=== PATIENT | female | born 1985 | race Caucasian/White ===

== ENCOUNTER 2024-02-28 05:46 | Inpatient (IN) | payer MEDICAID ==
[~2024-02-28] VITALS: Ht 177.8 cm; Wt 68.2 kg
[2024-02-28 09:37] LABS: BASOPHILS % (AUTO) 0.3 % (0-1); EOSINOPHILS # (AUTO) 0.2 X10'3 (0-0.9); EOSINOPHILS % (AUTO) 1.5 % (0-6); HEMATOCRIT 28.7 % (35.0-45.0); HEMOGLOBIN 9.1 g/dl (12.0-16.0); LYMPHOCYTES # (AUTO) 1.2 X10'3 (1.1-4.8); MEAN CORPUSCULAR HEMOGLOBIN 19.8 PG (27.0-31.0); MEAN CORPUSCULAR HGB CONC 31.8 g/dL (33.0-36.5); MEAN CORPUSCULAR VOLUME 62.3 FL (78-98); MEAN PLATELET VOLUME 8.8 FL (7.4-10.4); MONOCYTES # (AUTO) 1.3 X10'3 (0-0.9); MONOCYTES % (AUTO) 11.7 % (2-12); NEUTROPHILS # (AUTO) 8.2 X10'3 (1.8-7.7); NEUTROPHILS % (AUTO) 75.5 % (42-75); PLATELET COUNT 268 X10'3 (140-440); RED BLOOD COUNT 4.62 X10'6 (4.20-5.60); RED CELL DISTRIBUTION WIDTH 17.9 % (11.5-14.5); WHITE BLOOD COUNT 10.9 X10'3 (4.5-11.0)
[2024-02-28] MEDS: normal saline 1000ML IV soln IVB ONE (09:40)
[2024-02-28] MEDS: piperacillin/tazo 3.375gm/50ml 50 ML IV ONE (09:40)
[2024-02-28] MEDS: morphine 10mg/ml inj. IV ONE (09:40)
[2024-02-28 09:47] LABS: ALBUMIN 3.5 G/DL (3.4-5.0); ANION GAP 8 (8-16); BLOOD UREA NITROGEN 9 MG/DL (7-18); BUN/CREATININE RATIO 16.4 (10.0-20.0); CALCIUM 8.9 MG/DL (8.5-10.1); CHLORIDE 98 MMOL/L (99-107); CREATININE 0.55 MG/DL (0.40-0.90); GLUCOSE 107 MG/DL (70-104); SODIUM 132 MMOL/L (135-145); TOTAL CARBON DIOXIDE 26.4 MMOL/L (24-32); eCRCL 149 ML/MIN; eGFR > 90 ML/MIN
[2024-02-28] MEDS: vancomycin/NS 1 GM ADD-VANTAGE 250 ML IV ONE (09:58)
[2024-02-28 10:46] LABS: ANISOCYTOSIS 1+; MICROCYTOSIS 2+; PLATELET ESTIMATE NORMAL
[2024-02-28 10:47] LABS: ELLIPTOCYTES FEW; HYPOCHROMASIA 1+
[2024-02-28] MEDS ORDERED: magnesium sulf-water 4G/100mL 100 ML IV PRN (10:50)
[2024-02-28] MEDS ORDERED: magnesium Cl slow-release 64mg tablet PO PRN (10:50)
[2024-02-28] MEDS ORDERED: HYDROcodone/acetaminophen 5mg/325mg tablet PO PRN (10:50)
[2024-02-28] MEDS ORDERED: ondansetron/PF 4mg/2ml inj IV PRN (10:50)
[2024-02-28] MEDS ORDERED: potassium Cl 20 mEq SR tablet PO PRN ×2 (10:50)
[2024-02-28] MEDS ORDERED: acetaminophen 325mg tablet PO PRN ×2 (10:50)
[2024-02-28] MEDS ORDERED: morphine 2 MG/ML inj. syringe IV PRN (10:50)
[2024-02-28] MEDS ORDERED: magnesium sulf-water 2g/50mL 50 ML IV PRN (10:50)
[2024-02-28] MEDS ORDERED: potassium Cl 40MEQ/1/2NS 520ml 520 ML IV PRN (10:50)
[2024-02-28 12:09] LABS: THYROID STIMULATING HORMONE 3.99 ulU/ml (0.34-4.50)
[2024-02-28 12:25] LABS: BILIRUBIN,URINE NEGATIVE (Neg); CLARITY,URINE CLEAR (Clear); COLOR,URINE YELLOW (Yellow); GLUCOSE, URINE NEGATIVE (Neg); KETONES,URINE NEGATIVE (Neg); LEUKOCYTE ESTERASE ,URINE TRACE (Neg); NITRITES, URINE POSITIVE (Neg); OCCULT BLOOD,URINE NEGATIVE (Neg); PROTEIN,URINE NEGATIVE (Neg)
[2024-02-28 12:34] LABS: UA COLLECTION TYPE CLN CATCH MIDSTREAM
[2024-02-28 12:36] LABS: RBC,URINE NONE SEEN /HPF (0-2); URINE HCG NEGATIVE (NEG); WBC,URINE TNTC /HPF (0-4)
[2024-02-28 12:37] LABS: BACTERIA,URINE 2+ /HPF (Neg); MUCUS STRANDS NONE SEEN /LPF (Neg); WBC CLUMPS,URINE MODERATE /HPF (NEGATIVE)
[2024-02-28 12:38] LABS: SQUAMOUS EPITHELIAL CELL,UR MODERATE /LPF (FEW)
[2024-02-28 14:00] VITALS: RESP 15; O2SAT 96
[2024-02-28] MEDS: morphine 2 MG/ML inj. syringe IV PRN (14:22)
[2024-02-28] MEDS: metroNIDAZOLE-Flagyl 500mg/NS 100 ML IV SCH (15:23)
[2024-02-28] MEDS: normal saline 1000ml 1,000 ML IV SCH (15:24)
[2024-02-28] MEDS: vancomycin/NS 1 GM ADD-VANTAGE 250 ML IV SCH (16:45)
[2024-02-28] MEDS: HYDROcodone/acetaminophen 10/325mg tab PO PRN (16:50)
[2024-02-28 20:00] VITALS: RESP 16; O2SAT 96
[2024-02-28] MEDS: heparin, porcine 5000 units/ml vial SQ SCH (20:00)
[2024-02-28 22:00] VITALS: BP 110/58; PULSE 99; RESP 22; TEMP 100; O2SAT 98
[2024-02-29] VITALS: TEMP 98.7
[2024-02-29 10:00] VITALS: BP 115/76; PULSE 82; RESP 17; TEMP 97.6; O2SAT 100
[2024-02-29] MEDS: VANCOMYCIN LEVEL IV ONE (15:30)
[2024-02-29 16:05] LABS: BASOPHILS # (AUTO) 0.1 X10'3 (0-0.2); BASOPHILS % (AUTO) 0.5 % (0-1); EOSINOPHILS # (AUTO) 0.1 X10'3 (0-0.9); EOSINOPHILS % (AUTO) 1.3 % (0-6); HEMATOCRIT 26.4 % (35.0-45.0); HEMOGLOBIN 8.3 g/dl (12.0-16.0); LYMPHOCYTES # (AUTO) 2.2 X10'3 (1.1-4.8); LYMPHOCYTES % (AUTO) 20.5 % (21-51); MEAN CORPUSCULAR HEMOGLOBIN 19.8 PG (27.0-31.0); MEAN CORPUSCULAR HGB CONC 31.2 g/dL (33.0-36.5); MEAN CORPUSCULAR VOLUME 63.5 FL (78-98); MEAN PLATELET VOLUME 8.6 FL (7.4-10.4); MONOCYTES # (AUTO) 1.4 X10'3 (0-0.9); MONOCYTES % (AUTO) 12.8 % (2-12); NEUTROPHILS # (AUTO) 6.9 X10'3 (1.8-7.7); NEUTROPHILS % (AUTO) 64.9 % (42-75); PLATELET COUNT 284 X10'3 (140-440); RED BLOOD COUNT 4.17 X10'6 (4.20-5.60); RED CELL DISTRIBUTION WIDTH 17.9 % (11.5-14.5); WHITE BLOOD COUNT 10.6 X10'3 (4.5-11.0)
[2024-02-29 16:30] LABS: ALANINE AMINOTRANSFERASE 24 U/L (12-78); ALBUMIN 2.5 G/DL (3.4-5.0); ALBUMIN/GLOBULIN RATIO 0.6 (1.1-1.5); ANION GAP 7 (8-16); ASPARTATE AMINO TRANSFERASE 19 U/L (10-37); BILIRUBIN,TOTAL 0.3 MG/DL (0.1-1.0); BLOOD UREA NITROGEN 8 MG/DL (7-18); CALCIUM 8.1 MG/DL (8.5-10.1); CHLORIDE 103 MMOL/L (99-107); CREATININE 0.57 MG/DL (0.40-0.90); GLUCOSE 85 MG/DL (70-104); SODIUM 137 MMOL/L (135-145); TOTAL CARBON DIOXIDE 26.6 MMOL/L (24-32); TOTAL PROTEIN 6.6 G/DL (6.4-8.2); VANCOMYCIN,TROUGH 10.7 ug/mL (10.0-20.0); eCRCL 144 ML/MIN; eGFR > 90 ML/MIN
[2024-02-29 16:37] LABS: ALKALINE PHOSPHATASE 110 IU/L (46-116)
[2024-02-29 18:00] VITALS: BP 103/60; PULSE 94; RESP 18; TEMP 98.3; O2SAT 99
[2024-02-29] MEDS: nicotine 21mg patch - 24 hr TD SCH (18:26)
[2024-02-29 20:00] VITALS: RESP 18; O2SAT 96
[2024-02-29 22:00] VITALS: BP 109/60; PULSE 70; RESP 16; TEMP 97.7; O2SAT 92
[2024-03-01 09:29] VITALS: RESP 16; O2SAT 97
[2024-03-01 18:00] VITALS: BP 114/69; PULSE 84; RESP 20; TEMP 97.8; O2SAT 99
[2024-03-01] MEDS: VANCOMYCIN/WATER FOR INJ (PEG) 1.25GM/250 ML IVPB IV SCH (19:29)
[2024-03-01 20:00] VITALS: RESP 18; O2SAT 95
[2024-03-01] MEDS: temazepam 15mg capsule PO PRN (21:53)
[2024-03-01 22:00] VITALS: BP 118/70; PULSE 89; RESP 16; TEMP 97.9; O2SAT 99
[2024-03-02 09:19] VITALS: RESP 16
[2024-03-02] MEDS ORDERED: CEFD300C3 PO (10:10)
[2024-03-02] MEDS ORDERED: NICO-687 TD (10:10)
[2024-03-02] MEDS ORDERED: VANCOMYCIN LEVEL IV ONE (15:30)
== END 2024-03-02 11:30 | disposition home or self-care (01) | DRG 383 ==
LOC: ER 05:48 → ED HOLD 10:52 → SUR 3N 17:16
PROVIDERS: ADMIT Internal Medicine; ATTEND Internal Medicine
DX: L03.116 Cellulitis of left lower limb (principal); E87.1 Hypo-osmolality and hyponatremia; E03.9 Hypothyroidism, unspecified; I10 Essential (primary) hypertension; F11.10 Opioid abuse, uncomplicated; D64.9 Anemia, unspecified
CPT/HCPCS: 36415; 73600; 80048; 80053; 80202; 81001; 81025; 83605; 84145; 84443; 85008; 85025; 87040; 87081; 87088; 93971; 99285; A6223; A6446; A6449; G0378; J1644; J2270; J2274; J2543; J3370; J3372; J3490; J7030

== ENCOUNTER 2025-01-07 23:45 | Inpatient (IN) | payer MEDICAID ==
[~2025-01-07] VITALS: Ht 172.7 cm; Wt 62.2 kg
[~2025-01-07 23:45] MED LIST: NICO-687 TD
[2025-01-08] VITALS (20 sets, daily range): BP systolic 102–129; BP diastolic 58–76; PULSE 75–99; RESP 14–20; TEMP 97–98.3; O2SAT 91–100
--- NOTE | 2025-01-08 00:13 | Physician Documentation ---
History of Present Illness ~ Chief Complaint: Finger pain Stated Complaint: FINGER INFECTION Time Seen by MD: 00:12 HPI 39-year-old female presenting with wounds The patient tells me that several weeks ago she fell and injured her right elbow. She says she wounds over her elbow and her arm became very swollen. This did so improve. Then she developed pain and swelling to her right middle finger. She reports having a small black spot that was very painful, and now she has a large open wound and swelling to the finger. She also has a small open wound on the top of her right foot. She is not sure she has been having fevers, but states she feels very cold. She did take several doses of clindamycin that a friend had. She does have a history of substance use. She denies injecting needles. No other acute concerns. Medication Reconciliation Allergies: Coded Allergies: No Known Allergies (Unverified , 02/28/24) Discontinued Medications Nicotine 21 MG Patch* (Habitrol 21 MG Patch*), 1 PATCH TD DAILY Discontinued Reason: Pt. Refused Past Medical History Past Medical History: No Pertinent History Review of Systems Constitutional: Reports: chills Musculoskeletal: Reports: pain, swelling Physical Exam Vital Signs: Temperature: 98.0, Heart Rate: 114, Respiratory Rate: 18, BP: 151/85, Pulse Oximetry: 99, Weight: 62.200 Oxygen Flow Rate: 0 Physical Exam General: This is a thin young female, appears disheveled entire HEENT: Atraumatic, oropharynx appears dry Heart: Mild tachycardic, appears regular. No audible cardiac murmur Lungs: Coarse breath sounds in the left, otherwise clear, normal oxygen saturation on room air, occasional cough Back: The patient appears to have scoliosis and walks leaning to the side Extremities: Right foot: The patient has a small 1 cm open wound on the dorsum of her foot with minimal surrounding erythema no active drainage Right upper extremity: The patient has several healing scabs over her elbow, with no surrounding erythema or fluctuance. Right hand: The patient has a large open wound over the dorsal PIP joint of the middle finger, with purulent material, beefy red erythema extending down the finger into the hand, she is able to flex the finger. It is tender to palpation. Neuro: Alert and oriented Psychiatric: Calm and cooperative with exam Progress Results/Orders Results/Orders Orders - MANISHA PARKER MD Culture Blood (01/07/25 23:59) Monitor (01/07/25 23:59) Oxygen (01/07/25 23:59) Saline Lock (01/07/25 23:59) Chest,Single View (01/08/25 00:02) Hand, Complete (3vw Min) (01/08/25 01:16) Vancomycin 1gm 200ml H20 (Peg) (Vancomyc (01/08/25 09:30) Vancomycin,Trough (01/08/25 17:00) Page Hospitalist (01/08/25 05:54) Completed Orders - MANISHA PARKER MD Cbc/Diff (01/07/25 23:59) Procalcitonin (01/07/25 23:59) BMP (01/07/25 23:59) Lacticsepsis (01/07/25 23:59) Chest,Single View (01/08/25 00:02) Vancomycin*Pharmacy To Dose* (Vancomycin (01/08/25 01:15) Piperacillin/Tazo 4.5gm/100ml (Zosyn 4.5 (01/08/25 08:00) Hand, Complete (3vw Min) (01/08/25 01:16) Hcg, Ur Ql (01/08/25 01:25) Ketorolac Trometh 15mg/Ml Vial (Toradol (01/08/25 01:25) Ua W/Microscopic, Cult If Ind (01/08/25 00:58) Vancomycin 1,500mg Inj. (Vancomycin 1,50 (01/08/25 01:35) Piperacillin/Tazo 4.5gm/100ml (Zosyn 4.5 (01/08/25 02:10) Vancomycin/H2o 1.5g/300ml Pb (Vancomycin (01/08/25 02:10) Piperacillin/Tazo 4.5gm/100ml (Zosyn 4.5 (01/08/25 02:11) Azithromycin Tablet (Zithromax Tablet) (01/08/25 02:40) Hydromorphone 1 Mg/Ml/Pf (Dilaudid Inj.) (01/08/25 03:25) Medications Received in ER Medications (Trade) Dose Ordered Sig/Chris Route PRN Reason Start Time Stop Time Status Last Admin Dose Admin (Vancomycin Pharmacy To Dose) 1 unit ONCE ONCE IV 01/08/25 01:15 01/08/25 01:16 DC 01/08/25 01:44 1 UNIT (Toradol injection) 15 mg ONCE ONCE IV 01/08/25 01:25 01/08/25 01:26 DC 01/08/25 02:15 15 MG Vancomycin HCl 1500 mg/Sodium Chloride 300 ml @ 150 mls/hr ONCE ONCE IV 01/08/25 01:35 01/08/25 03:34 DC 01/08/25 02:25 150 MLS/HR Piperacillin/ Tazobactam/ Dextrose 100 ml @ 25 mls/hr ONCE ONCE IV 01/08/25 02:10 01/08/25 06:09 DC 01/08/25 02:19 25 MLS/HR (Zithromax tablet) 500 mg ONCE ONCE PO 01/08/25 02:40 01/08/25 02:41 DC 01/08/25 03:19 500 MG (Dilaudid inj.) 1 mg ONCE ONCE IV 01/08/25 03:25 01/08/25 03:26 DC 01/08/25 03:29 1 MG Vital Signs 01/07/25 01/08/25 01/08/25 01/08/25 23:55 00:31 00:36 00:45 Temp 98.0 98.0 Pulse 114 106 105 Resp B/P (MAP) 151/85 127/84 (98) 125/76 (92) Pulse Ox 99 97 96 95 O2 Delivery Room Air* O2 Flow Rate 0 0 0 FiO2 01/08/25 01/08/25 01/08/25 01/08/25 00:46 00:47 00:48 00:49 Pulse 103 106 103 105 Resp Pulse Ox 97 97 97 97 01/08/25 01/08/25 01/08/25 01/08/25 00:50 00:51 00:52 00:53 Pulse 105 104 107 109 Resp 35 Pulse Ox 97 97 96 96 01/08/25 01/08/25 01/08/25 01/08/25 00:54 00:55 00:56 00:57 Pulse 109 111 106 104 Resp 22 Pulse Ox 95 95 94 94 01/08/25 01/08/25 01/08/25 01/08/25 00:58 00:59 01:09 01:10 Pulse 107 106 108 Resp 26 17 Pulse Ox 96 96 96 96 01/08/25 01/08/25 01/08/25 01/08/25 01:11 01:12 01:13 01:14 Pulse 108 106 106 111 Resp 18 17 22 20 B/P (MAP) 142/86 (104) Pulse Ox 98 97 97 97 O2 Flow Rate 0 01/08/25 01/08/25 01/08/25 01/08/25 01:15 01:16 01:17 01:18 Pulse 109 112 106 99 Resp 21 22 Pulse Ox 97 97 96 96 01/08/25 01/08/25 01/08/25 01/08/25 01:19 01:20 01:21 01:22 Pulse 96 99 104 106 Resp 33 31 29 Pulse Ox 96 95 95 95 01/08/25 01/08/25 01/08/25 01/08/25 01:23 01:24 01:25 01:26 Pulse 108 108 106 107 Resp 23 20 35 35 Pulse Ox 96 95 96 96 01/08/25 01/08/25 01/08/25 01/08/25 01:27 01:28 01:30 02:00 Pulse 106 111 109 98 Resp 35 33 22 17 B/P (MAP) 142/95 (111) 131/83 (99) Pulse Ox 95 96 97 96 01/08/25 01/08/25 01/08/25 01/08/25 02:15 02:30 03:00 03:30 Pulse 107 106 102 Resp 16 18 16 22 B/P (MAP) 120/73 (89) 133/64 (87) 127/61 (83) Pulse Ox 94 95 94 01/08/25 01/08/25 01/08/25 04:00 04:30 05:00 Pulse 101 99 101 Resp 14 16 17 B/P (MAP) 114/59 (77) 113/54 (73) 109/67 (81) Pulse Ox 96 95 95 Laboratory Tests Test 01/08/25 00:40 01/08/25 00:58 White Blood Count 13.4 H Red Blood Count 4.16 L Hemoglobin 9.3 L Hematocrit 27.7 L Mean Corpuscular Volume 66.5 L Mean Corpuscular Hemoglobin 22.2 L Mean Corpuscular Hemoglobin Concent 33.4 Red Cell Distribution Width 16.2 H Platelet Count 422 Mean Platelet Volume 7.2 L Neutrophils (%) (Auto) 77.5 H Lymphocytes (%) (Auto) 11.2 L Monocytes (%) (Auto) 10.7 Eosinophils (%) (Auto) 0.3 Basophils (%) (Auto) 0.3 Neutrophils # (Auto) 10.4 H Lymphocytes # (Auto) 1.5 Monocytes # (Auto) 1.4 H Eosinophils # (Auto) 0.0 Basophils # (Auto) 0.0 CBC Comment Platelet Estimate Normal Red Blood Cell Morphology Perf Basophilic Stippling Anisocytosis 1+ Microcytosis 2+ Sodium Level 128 L Potassium Level 3.7 Chloride Level 92 L Carbon Dioxide Level 28.4 Anion Gap 8 Blood Urea Nitrogen 9 Creatinine 0.52 Estimated GFR/1.73 m2 > 90 BUN/Creatinine Ratio 17.3 Glucose Level 107 H Lactic Acid Level 1.5 Calcium Level 8.6 Albumin 2.4 L Procalcitonin 0.50 Chemistry Comments Urine Specimen Description Non-specified Urine Color Yellow Urine Clarity Clear Urine pH 6.5 Urine Specific [place] 1.010 Urine Protein 30 H Urine Glucose (UA) Negative Urine Ketones Negative Urine Occult Blood Trace-intact Urine Nitrite Negative Urine Bilirubin Negative Urine Urobilinogen 4.0 H Urine Leukocyte Esterase Negative Urine RBC 0-2 Urine WBC None seen Urine Squamous Epithelial Cells Few Urine Bacteria None seen Urine Culture Indicated Not ind Volume Urine Centrifuged 10 ml Urine HCG, Qualitative Negative Urine Comment Microbiology Date/Time Source Procedure Growth Status 01/08/25 00:53 Blood Iv Start Blood Culture - Preliminary NEGATIVE (LESS THAN 24 HOURS) Resulted EKG/XRAY/CT/US/VASC/MRI Chest X-Ray : Additional Comments I personally interpreted the chest x-ray, and it shows: Left-sided opacity, no pneumothorax, no right-sided opacity Bone/Soft Tissue X-Ray (Ext.) : Additional Comment I personally interpreted the x-ray, and it shows: No fracture. There was soft tissue swelling. Radiology report states no bony abnormality Consults/PCP Consults/PCP : Additional Comment Consult: I spoke to the distribution operations supervisor orthopedic surgeon. He will consult for debridement if needed. Consult: I spoke to the internal medicine service, for admission in the hospital Medical Decision Making Additional information obtaine: N/A Findings na General Diff Dx:Considerations: Include: Fracture Shoulder Diff Dx:Consideration: Unlikely: Fracture-humerus Elbow Diff Dx:Considerations: Unlikely: Fracture-ulna Wrist Diff Dx:Considerations: Unlikely: Carpal tunnel snydrome Hand Diff Dx:Considerations: Unlikely: Fracture-ulna Finger Diff Dx:Considerations: Include: Cellulitis; Unlikely: Fracture Additional Comment The patient presents with several symptoms including a wound to her right middle finger as well as a cough and chest discomfort. On exam she has a significant infection to her finger with cellulitis and purulent material draining from the finger. Labs show a leukocytosis and mild hyponatremia but otherwise no significant abnormality. X-ray of the finger does not show obvious osteomyelitis. She was given broad-spectrum IV antibiotics. We will consult Orthopedics for recommendations. Chest x-ray also shows findings concerning for a left-sided pneumonia. The patient will be admitted here for IV antibiotics and orthopedic consult. Departure Impression: Primary Impression: Wound cellulitis Additional Impression: Community acquired pneumonia Referrals: NO PRIMARY CARE PROVIDER (PCP) Signature Scribe Signature: na Attestation: MANISHA Lara MD Jan 08, 2025 00:13
--- NOTE | 2025-01-08 00:34 | RADIOLOGY REPORT ---
MEDICAL RECORDS NUMBER: [id number] PROCEDURE: DI CHEST,SINGLE VIEW DATE: 01/08/2025 12:15 AM HISTORY: WOUND Views:1 COMPARISON: None FINDINGS/IMPRESSION: Lungs: Hazy density at the left base may represent infiltrate. No large consolidation is seen. Mediastinum: Mediastinal structures appear unremarkable... Skeletal: The skeletal structures appear unremarkable.
[2025-01-08 00:55] LABS: MEAN PLATELET VOLUME 7.2 FL (7.4-10.4); RED CELL DISTRIBUTION WIDTH 16.2 % (11.5-14.5)
[2025-01-08 01:03] LABS: CREATININE 0.52 MG/DL (0.40-0.90); TOTAL CARBON DIOXIDE 28.4 MMOL/L (24-32); eCRCL 143 ML/MIN; eGFR > 90 ML/MIN
[2025-01-08 01:15] LABS: PLATELET ESTIMATE NORMAL
[2025-01-08 01:25] LABS: LEUKOCYTE ESTERASE ,URINE NEGATIVE (Neg); NITRITES, URINE NEGATIVE (Neg); OCCULT BLOOD,URINE TRACE-INTACT (Neg)
[2025-01-08 01:37] LABS: UA COLLECTION TYPE NON-SPECIFIED
[2025-01-08 01:38] LABS: SQUAMOUS EPITHELIAL CELL,UR FEW /LPF (FEW)
--- NOTE | 2025-01-08 01:42 | RADIOLOGY REPORT ---
MEDICAL RECORDS NUMBER: [id number] PROCEDURE: DI HAND, COMPLETE (3VW MIN) DATE: 01/08/2025 01:23 AM HISTORY: right 2nd finger infection, and hand swelling, eval osteo COMPARISON: None FINDINGS/IMPRESSION: Prominent soft tissue swelling is seen of the middle finger. No fracture, erosion, dislocation or other acute abnormality is seen. MRI may be helpful if concern persists.
[2025-01-08] MEDS: ketorolac trometh 15mg/ml vial 15 MG/ML ML IV ONE (02:15)
[2025-01-08] MEDS: VANCOMYCIN/H2O 1.5g/300mL PB 300 ML IV ONE (02:16)
[2025-01-08] MEDS: piperacillin/tazo 4.5gm/100ml 100 ML IV ONE ×2 (02:19→02:22)
[2025-01-08] MEDS: VANCOMYCIN 1,500MG in normal saline IV soln 300 ML IV ONE (02:25)
[2025-01-08 02:45] LABS: URINE HCG NEGATIVE (NEG)
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
[2025-01-08] MEDS ORDERED: potassium Cl 20 mEq SR tablet PO PRN (07:45)
[2025-01-08] MEDS ORDERED: ondansetron/PF 4mg/2ml inj IV PRN ×2 (07:45→09:25)
[2025-01-08] MEDS ORDERED: mag hydrox/Alum hydrox/simeth 30ml oral suspension PO PRN (07:45)
[2025-01-08] MEDS ORDERED: magnesium Cl slow-release 64mg tablet PO PRN (07:45)
[2025-01-08] MEDS ORDERED: acetaminophen 650mg rectal suppository RC PRN (07:45)
[2025-01-08] MEDS ORDERED: magnesium sulf-water 4G/100mL 100 ML IV PRN (07:45)
[2025-01-08] MEDS ORDERED: metoclopramide 5 mg/ml inj IV PRN (07:45)
[2025-01-08] MEDS ORDERED: ipratropium/albuterol 3ml nebule NEB PRN (07:45)
[2025-01-08] MEDS ORDERED: magnesium hydroxide 30ml (MOM) UD suspension PO PRN (07:45)
[2025-01-08] MEDS ORDERED: ondansetron 4mg rapidly disintigrating tab PO PRN (07:45)
[2025-01-08] MEDS ORDERED: magnesium sulf-water 2g/50mL 50 ML IV PRN (07:45)
[2025-01-08] MEDS ORDERED: potassium Cl 40MEQ/1/2NS 520ml 520 ML IV PRN (07:45)
[2025-01-08] MEDS ORDERED: bisacodyl 10mg suppository rectal RC PRN (07:45)
[2025-01-08] MEDS ORDERED: HYDROcodone/acetaminophen 5mg/325mg tablet PO PRN (07:45)
[2025-01-08] MEDS ORDERED: piperacillin/tazo 4.5gm/100ml 100 ML IV ONE (08:00)
[2025-01-08] MEDS ORDERED: BUPIVAcaine 2.5mg/ml inj 50ml vial (contains preservative) ONE (08:18)
[2025-01-08 08:25] LABS: APTT 35 SECONDS (22-32); INR 1.1 INR
--- NOTE | 2025-01-08 08:50 | RADIOLOGY REPORT ---
CT Chest without intravenous contrast INDICATION: sepsis opacities TECHNIQUE: Multidetector spiral CT of the chest was performed from the lung apices to the upper abdomen. Axial, coronal and sagittal multiplanar reformats were performed. Radiation Dose : 1. Chest: CTDI volume is 6.2 mGy. Dose-length product is 208.3 mGy*cm The dose indicators for CT are the volume Computed Tomography (CT) Dose Index (CTDIvol) and the Dose Length Product (DLP), and are measured in units of mGy and mGy-cm, respectively. These indicators are not patient dose, but values generated from the CT scanner acquisition factors. The report includes radiation exposure data for exposures received during this examination. Comparison: DI CHEST,SINGLE VIEW on DOS: 01/08/25 Findings: Lower neck: Normal thyroid. Lungs: Patchy ground-glass airspace opacities are present in the right upper lobe. 0.7 cm nodule in the right upper lobe, image 16 0.6 cm nodule in the right lower lobe, image 55 0.5 cm nodule in the right lower lobe, image 62 0.4 cm nodule in the left lower lobe, image 57 Heart/Vascular Structures: Normal heart size. No pericardial effusion. Lymph Nodes: No adenopathy Pleura: Small dependent left pleural effusion. Moderate left anterior loculated pleural effusion abutting the anterior mediastinum. Musculoskeletal: No acute osseous abnormality. Soft tissues: Normal. Upper abdomen: Limited portions of the upper abdomen are unremarkable. IMPRESSION: Patchy ground-glass airspace opacities in the right upper lobe may be infectious or inflammatory. Small dependent left pleural effusion. Moderate left anterior loculated pleural effusion abutting the anterior mediastinum. Multiple pulmonary nodules measuring up to 0.7 cm. Follow-up CT in 6-12 months is recommended. Radiation optimization: All CT scans at this facility use at least one of these dose optimization techniques: automated exposure control mA and/or kV adjustment per patient size (includes targeted exams where dose is matched to clinical indication) or iterative reconstruction.
[2025-01-08] MEDS: ringers solution, lacted 1,000 ML IV SCH (09:25)
[2025-01-08] MEDS ORDERED: HYDROmorphone/PF 0.2 MG/ML SYRINGE IV PRN ×2 (09:25)
[2025-01-08] MEDS ORDERED: morphine 4 MG/ML inj SYRINge IV PRN (09:25)
[2025-01-08] MEDS ORDERED: midazolam 1 mg/ML 2ml injection ONE (09:27)
[2025-01-08] MEDS ORDERED: fentaNYL/PF 50MCG/1 ML 2ML syringe ONE (09:27)
[2025-01-08] MEDS ORDERED: ondansetron/PF 4mg/2ml inj ONE (09:42)
[2025-01-08] MEDS ORDERED: propofol inj 20 ML IV ONE (09:42)
[2025-01-08] MEDS ORDERED: dexamethasone sod phosphate 4mg/ml inj. ONE (09:42)
[2025-01-08] MEDS ORDERED: LIDOcaine 2% (20mg/ml) 5ml vial ONE (09:42)
[2025-01-08 09:43] LABS: PHOSPHORUS 3.9 MG/DL (2.3-4.5); PRO BRAIN NATRIURETIC PEPTIDE 187.0 PG/ML (0-125)
[2025-01-08] MEDS: BUPIVAcaine/PF 2.5 mg/ml (0.25%) 30ml vial IJ ONE (09:44)
[2025-01-08] MEDS: CefTRIAXone/D5W-Rocephin 1gm 50 ML IV SCH (09:45)
[2025-01-08] MEDS: azithromycin/NS 500mg/250ml 250 ML IV SCH (09:53)
[2025-01-08 09:54] LABS: URINE AMPHETAMINE SCREEN POSITIVE (Neg); URINE BARBITUATE SCREEN NEGATIVE (Neg); URINE BENZODIAZEPINES SCREEN NEGATIVE (Neg); URINE CANNABINOID SCREEN NEGATIVE (Neg); URINE COCAINE SCREEN NEGATIVE (Neg); URINE METHADONE SCREEN NEGATIVE (Neg); URINE OPIATE SCREEN NEGATIVE (Neg); URINE PHENCYCLIDINE SCREEN NEGATIVE (Neg)
--- NOTE | 2025-01-08 09:57 | CONSULTATION REPORT ---
History of Present Illness Providers to CC ~ Reason for Admit\Admit Dx: Right hand infection Refering MD: Mendy History of Present Illness The patient is a 39-year-old woman who is not a very good historian who reports about one week history of right middle finger pain swelling and drainage. She is not sure how she got it. Pain is excruciating and she presented with a abscess in the finger. Allergies: Coded Allergies: No Known Allergies (Unverified , 02/28/24) Home Medications Home Medications Active Physical Exam Last Vital Signs Recorded: Temperature: 97.0, Heart Rate: 92, Respiratory Rate: 18, BP: 125/73, Pulse Oximetry: 91, Weight: 62.200 Extremities There is an ulcerated area on the dorsum of the finger near the PIPJ joint. There was some necrotic tissue overlying the extensor tendon. There was some purulent drainage extending proximal to the PIPJ joint. She has able to move her finger to a certain extent indicating the tendons are intact. Results Diagram Lab Result Diagram: 01/08/25 0040 01/08/25 0802 Assessment/Plan Problems/Diagnosis: (1) Wound cellulitis Additional Plan She has not infection extending down to the extensor tendon and surgery is indicated on an urgent basis to prevent the spread of infection and destruction of the joint and soft tissues. I explained to her the nature of the injury and need for surgery. The patient agreed to proceed. Potential complication of the type of surgery would require further surgery antibiotic resistant infection possible eventual amputation. TAYA DIAZ Jr., MD Jan 08, 2025 09:57
--- NOTE | 2025-01-08 10:02 | OPERATIVE REPORT ---
Operative Report Providers to ~ Date of Procedure: Jan 08, 2025 Pre-Operative Diagnosis: Right middle finger abscess Post-Operative Diagnosis SAME as PRE-Op Procedure Performed Irrigation debridement of abscess right middle finger Surgeon: Mick Abbott MD Screen Door Maker None Anesthesiologist: Shantell Love Type of Anesthesia: General Findings: The full-thickness skin infection extending to the extensor tendon on the dorsum of the middle finger with skin loss Complications None Prosthetics\Implants used: None Estimated Blood Loss: None Specimen Removed: Deep wound culture Description of Procedure: The patient is a 39-year-old woman who presented with a proximally one week of right index finger infection. She is a poor historian and does not communicate how the infection may have occurred. Surgery is indicated to eradicate infection and prevent spread. Risks and benefits were discussed with the patient. Some of the risks of this type of procedure include continuing infection need for further surgery the possibility of the figure amputation eventually. She agreed to proceed. Once in the operating room the anesthetic was given. The hand was prepped and draped in usual manner with a tourniquet on the forearm. Debridement was done of the skin over the wound and this showed exposed extensor tendon. It did not appear to extend to the PIPJ joint. Pus was expressed from the proximal end. An incision was made in the skin to open this area up and a deep wound culture was obtained. Antibiotics were then given in the operating room. Furt her debridement was done to remove all nonviable tissue which left a proximally 6 cm diameter gap exposing the extensor tendon. A single suture was placed proximally but the wound was then packed and a sterile dressing was applied. Marcaine was injected at the base of the digit. Tourniquet was released the hand perfused well and she was taken to the recovery room in stable condition. MICK ABBOTT Jr., MD Jan 08, 2025 10:02
[2025-01-08] MEDS: docusate sod 100mg capsule PO SCH (10:08)
[2025-01-08] MEDS: vancomycin/NS 1 GM ADD-VANTAGE 250 ML IV SCH (10:10)
--- NOTE | 2025-01-08 10:22 | RADIOLOGY REPORT ---
INDICATION: osteo.. , RT 2ND FINGER, pain and swelling COMPARISON: None TECHNIQUE: CT of the right and was performed without contrast. Volume transverse images were obtained and reconstructed in multiple planes using bone and soft tissue algorithms. Radiation Dose Information: CT Dose: CTDI volume is 3.04 mGy. Dose-length product is 91.26 mGy*cm FINDINGS: Diffuse soft tissue swelling of the 3rd finger more so than the 2nd finger. No underlying erosive changes or periostitis. No fracture or malalignment. No organized fluid collections. IMPRESSION: No CT evidence for acute osteomyelitis. If there remains ongoing concern suggest more definitive assessment with MRI. All CT scans at this medical facility are performed using dose modulation techniques as appropriate to a performed exam including the following: Automated exposure control was utilized; adjustment of the MA and/or KV according to patient size; and use of iterative reconstruction technique.
[2025-01-08] MEDS: normal saline 1000ml 1,000 ML IV SCH (10:23)
[2025-01-08] MEDS: acetaminophen 1,000mg/100ml IV 100 ML IV PRN (10:23)
[2025-01-08] MEDS: TETanus/Pertussis (Acell)/Diphther VAC/PF (Tdap-Adult) 0.5ml syringe IMVAC ONE (10:45)
[2025-01-08] MEDS: potassium Cl 20 mEq SR tablet PO PRN (13:19)
[2025-01-08] MEDS: K and/or MAG REPLACEMENT MC SCH (13:19)
[2025-01-08] MEDS: HYDROcodone/acetaminophen 10/325mg tab PO PRN (17:08)
[2025-01-08] MEDS ORDERED: no meds (18:56)
[2025-01-09] MEDS ORDERED: VANCOMYCIN LEVEL IV ONE (01:30)
[2025-01-09] MEDS ORDERED: pantoprazole 40mg Tablet.DR PO SCH (07:30)
--- NOTE | 2025-01-09 11:12 | DISCHARGE SUMMARY ---
Discharge Summary Providers to CC Patient left AMA ~ Discharge Summary Assessment A right 2nd finger cellulitis Right 2nd finger open infected wound Status post right side 2nd finger debridement Chronic amphetamine fentanyl abuse including currently Acute amphetamine intoxication Chronic tobacco abuse including currently A L -sided pneumonia community-acquired Gram-positive Gram-negative Bilateral pleural effusion Anemia hemoglobin 9.3 Hypertension on no medications Hypoalbuminemia History of hypothyroidism Hyponatremia Admission Diagnosis: Right middle finger abscess Admission Diagnosis Comment: A right 2nd finger cellulitis Right 2nd finger open infected wound Status post right side 2nd finger debridement Chronic amphetamine fentanyl abuse including currently Acute amphetamine intoxication Chronic tobacco abuse including currently A L -sided pneumonia community-acquired Gram-positive Gram-negative Bilateral pleural effusion Anemia hemoglobin 9.3 Hypertension on no medications Hypoalbuminemia History of hypothyroidism Hyponatremia Hospital Course DATE OF ADMISSION: January 08, 2025 DATE OF DISCHARGE: January 08, 2025 Discharge Diagnosis\Comment: A right 2nd finger cellulitis Right 2nd finger open infected wound Status post right side 2nd finger debridement Chronic amphetamine fentanyl abuse including currently Acute amphetamine intoxication Chronic tobacco abuse including currently A L -sided pneumonia community-acquired Gram-positive Gram-negative Bilateral pleural effusion Anemia hemoglobin 9.3 Hypertension on no medications Hypoalbuminemia History of hypothyroidism Hyponatremia Operations\Procedures: Debridement of the right side 2nd finger abscess Consultants: Orthopedic doctor Complications: Non Condition on DC: Stable Discharge Summary: This is a 39-year-old female, with history of multiple medical problems including, hypertension, on no medications, chronic amphetamine and fentanyl abuse including currently, chronic tobacco abuse including currently, hypothyroidism, anemia hemoglobin 9.3, hypoalbuminemia, presented today to emergency department chief complaint left hand 2nd finger open wound associated with swelling redness seropurulent discharge and pain; in addition this is the patient who is presenting with wounds The patient tells me that several weeks ago she fell and injured her right elbow. She says she wounds over her elbow and her arm became very swollen. This did so improve. Then she developed pain and swelling to her right middle finger. She reports having a small black spot that was very painful, and now she has a large open wound and swelling to the finger. She also has a small open wound on the top of her right foot. She is not sure she has been having fevers, but states she feels very cold. She did take several doses of clindamycin that a friend had. She does have a history of substance use. She denies injecting needles. In emergency department patient was evaluated by physician and after consultation with orthopedic surgeon decision was made to admit patient for further evaluation and treatment, started on IV antibiotics, After admission patient was extensively evaluated treated, procedure was done by orthopedic surgeon, I and D and debridement of the right 2nd finger abscess, postoperative patient did fine. Elected to leave AMA. Unfortunately I was not able to perform a physical exam since patient left AMA. *Problems/Diagnosis: (1) Wound cellulitis Status: Acute (2) Community acquired pneumonia Status: Acute Total Time Spent on D/C: > 30 Minutes Date of Service: Jan 08, 2025 Billing Provider: JANET SANTIAGO MD Common Visit Codes: 35528-KDZ/OBS DISCH DAY >30min JANET SANTIAGO MD Jan 09, 2025 11:12
== END 2025-01-08 20:10 | disposition left against medical advice (07) | DRG 364 ==
LOC: ER 23:46 → ED HOLD 01-08 07:47 → ORTHO 4S 01-08 11:15
PROVIDERS: ADMIT Family Medicine; ATTEND Family Medicine
PROC: 0JBJ0ZZ Excision of Right Hand Subcutaneous Tissue and Fascia, Open Approach (ICD-10-PCS; principal; 2025-01-08 09:30)
DX: L02.511 Cutaneous abscess of right hand (principal); J15.69 Pneumonia due to other Gram-negative bacteria; J15.9 Unspecified bacterial pneumonia; J90 Pleural effusion, not elsewhere classified; E87.1 Hypo-osmolality and hyponatremia; E88.09 Other disorders of plasma-protein metabolism, not elsewhere classified; L03.011 Cellulitis of right finger; I10 Essential (primary) hypertension; E03.9 Hypothyroidism, unspecified; F15.129 Other stimulant abuse with intoxication, unspecified; D64.9 Anemia, unspecified; S91.301A Unspecified open wound, right foot, initial encounter; Z72.0 Tobacco use; S61.202A Unspecified open wound of right middle finger without damage to nail, initial encounter; X58.XXXA Exposure to other specified factors, initial encounter; Y93.89 Activity, other specified; Y92.89 Other specified places as the place of occurrence of the external cause; Y99.8 Other external cause status; Z53.29 Procedure and treatment not carried out because of patient's decision for other reasons
CPT/HCPCS: 36415; 71045; 71250; 73130; 73200; 80048; 80305; 81001; 81025; 83605; 83735; 83880; 84100; 84132; 84145; 85008; 85025; 85610; 85730; 87040; 87070; 87075; 87077; 87081; 87186; 94760; 99285; A4618; A6253; A6446; A6449; A7000; G0378; J0131; J1100; J1171; J1885; J2003; J2250; J2405; J2543; J2704; J3010; J3373; J3490; J7030; J7040; J7120